=== PATIENT | male | born 1970 ===

== ENCOUNTER 2017-11-05 14:52 | Emergency (ER) | payer OTHER ==
[2017-11-05 15:02] VITALS: BMI 35.4
[2017-11-05 15:10] VITALS: RESP 18; TEMP 98.7; O2SAT 98
[2017-11-05] MEDS ORDERED: Naproxen 550 mg Tab PO STA (15:37)
[2017-11-05] MEDS ORDERED: Naproxen 550 mg Tab PO ONE (15:44)
--- NOTE | 2017-11-05 15:52 | C.PDOC ---
History Of Present Illness 47 year old male presents to the ER with complaint of right heel pain for the past 2 days that worsens with walking. Patient states he recently came back from the [place], while there he had right hand pain and was treated with Mobic with improvement. Patient is currently requesting x-rays of both areas. He denies falls or injuries, sensory changes. Time Seen by Provider: 11/05/17 15:17 Chief Complaint (Nursing): Lower Extremity Problem/Injury History Per: Patient History/Exam Limitations: no limitations Onset/Duration Of Symptoms: Days Current Symptoms Are (Timing): Still Present Severity: Mild Recent travel outside of the [place]: No Past Medical History Reviewed: Historical Data, Nursing Documentation, Vital Signs Vital Signs: Last Vital Signs Temp 98.7 F 11/05/17 15:02 Pulse 72 11/05/17 16:27 Resp 18 11/05/17 15:02 BP 162/102 H 11/05/17 16:27 Pulse Ox 98 11/05/17 19:15 - Medical History PMH: HTN Family History: States: No Known Family Hx - Social History Hx Alcohol Use: No Hx Substance Use: No - Immunization History Hx Tetanus Toxoid Vaccination: No Hx Influenza Vaccination: No Hx Pneumococcal Vaccination: No Review Of Systems Constitutional: Negative for: Fever, Chills Musculoskeletal: Positive for: Hand Pain, Foot Pain Skin: Negative for: Rash Neurological: Negative for: Weakness, Numbness Physical Exam - Physical Exam Appears: Well, Non-toxic, No Acute Distress Skin: Normal Color, Warm, Dry, No Rash Head: Normacephalic Eye(s): bilateral: Normal Inspection Oral Mucosa: Moist Cardiovascular: Rhythm Regular Respiratory: Normal Breath Sounds, No Rales, No Rhonchi, No Wheezing Extremity: Normal ROM (x4), No Calf Tenderness, Capillary Refill (<2 seconds all digits ), No Deformity, No Swelling, Other (Right hand without TTP, swelling , redness. (+) Tenderness to palpation at right posterior heel, no swelling, redness, deformity) Pulses: Left Radial: Normal, Right Radial: Normal, Left Dorsalis Pedis: Normal, Right Dorsalis Pedis: Normal Neurological/Psych: Oriented x3, Normal Motor, Normal Sensation Gait: Steady ED Course And Treatment O2 Sat by Pulse Oximetry: 98 (Room air) Pulse Ox Interpretation: Normal - Other Rad Right hand x-ray X-Ray: Viewed By Me, Read By Radiologist Interpretation: PROCEDURE: Right Hand Radiographs. HISTORY: right hand pain. COMPARISON: None. FINDINGS: BONES: Normal. No fracture. JOINTS: Normal. No osteoarthritic changes. SOFT TISSUES: Normal. OTHER FINDINGS: None. IMPRESSION: Normal right hand radiographs. Right heel x-ray X-Ray: Viewed By Me, Read By Radiologist Interpretation: PROCEDURE: Radiographs of the right calcaneus/hindfoot. HISTORY: right heel pain r/o fx. COMPARISON: None available. TECHNIQUE: Frontal and lateral radiographs of the calcaneus. FINDINGS: No fracture or joint dislocation. No focal lesion. Achilles enthesophyte. Small calcaneal spur. IMPRESSION: No acute fracture. Small calcaneal spur. Progress Note: Xrays of right hand and right heel ordered and reviewed. Patient given PO Naprosyn. Reevaluation Time: 16:30 Reassessment Condition: Improved (On reassessment, patient is resting comfortably and states his pain has improved. Xray of heel shows calcaneal sput. Patient given Rx for Naprosyn and instructed to follow up with podiatry within 1 week. He understands he should return to ED if symptoms worsen.) Disposition Counseled Patient/Family Regarding: Studies Performed, Diagnosis, Need For Followup, Rx Given - Disposition Referrals: Podiatry Clinic [Outside] Disposition: HOME/ ROUTINE Disposition Time: 16:30 Condition: STABLE Additional Instructions: FOLLOW UP WITH PODIATRY WITHIN 1 WEEK USE MEDICATIONS DIRECTED DO NOT TAKE WITH MELOXICAM RETURN TO ER IF SYMPTOMS WORSEN Prescriptions: Naproxen [Naprosyn] 1 tab PO BID PRN #25 tab PRN Reason: Pain Instructions: Heel Spurs (DC) Forms: [employer] ([place]ese) Print Language: LAO - Clinical Impression Clinical Impression: Heel spur - Scribe Statement The provider has reviewed the documentation as recorded by the Tegan Campos All medical record entries made by the Genaroibaddie were at my direction and personally dictated by me. I have reviewed the chart and agree that the record accurately reflects my personal performance of the history, physical exam, medical decision making, and the department course for this patient. I have also personally directed, reviewed, and agree with the discharge instructions and disposition.
--- NOTE | 2017-11-05 16:13 | RAD ---
Date of service: 11/05/2017 PROCEDURE: Radiographs of the right calcaneus/hindfoot. HISTORY: right heel pain r/o fx COMPARISON: None available. TECHNIQUE: Frontal and lateral radiographs of the calcaneus. FINDINGS: No fracture or joint dislocation. No focal lesion. Achilles enthesophyte. Small calcaneal spur. IMPRESSION: No acute fracture. Small calcaneal spur.
--- NOTE | 2017-11-05 16:13 | RAD ---
PROCEDURE: Right Hand Radiographs. HISTORY: right hand pain COMPARISON: None. FINDINGS: BONES: Normal. No fracture. JOINTS: Normal. No osteoarthritic changes. SOFT TISSUES: Normal. OTHER FINDINGS: None. IMPRESSION: Normal right hand radiographs.
[2017-11-05 16:28] VITALS: BP 162/102; PULSE 72
== END 2017-11-05 16:30 | disposition home or self-care (01) ==
LOC: C.ER 14:52
DX: M77.31 Calcaneal spur, right foot (principal)